=== PATIENT | female | born 1940 | race Caucasian/White ===

== ENCOUNTER 2019-05-18 21:04 | Emergency (ER) | payer MEDICARE, OTHER, SELFPAY ==
[2019-05-18] VITALS (9 sets, daily range): BP systolic 109–129; BP diastolic 52–92; PULSE 95–110; RESP 18–30; TEMP 37.2–37.5; O2SAT 94–97
--- NOTE | ~2019-05-18 | XR_ITS ---
EXAMINATION: XR chest 2V DATE: 05/18/2019 21:30 INDICATION: Shortness of breath TECHNIQUE: AP and lateral views of the chest are obtained. COMPARISON: 06/21/2017; CT, 11/15/2018 FINDINGS: There appears to be persistent partial collapse of the right middle lobe. The lungs are jennifer e of acute opacities. There is no pleural effusion or pneumothorax. The cardiomediastinal silhouette is normal. There is moderate thoracic spondylosis. IMPRESSION: 1. Persistent partial collapse of the right middle lobe. Reviewed, dictated and finalized at location A.
--- NOTE | 2019-05-18 21:10 | ECG_ITS ---
Measurements Intervals [place] Rate: 97 P: 72 MS: 127 QRS: 56 QRSD: 94 T: 67 QT: 345 QTc: 439 Interpretive Statements SINUS RHYTHM NORMAL ECG Electronically Signed On 05-19-2019 7:19:01 CDT by Musa Aguilar D.O.
--- NOTE | 2019-05-18 21:15 | ED.URI ---
HPI - URI/Sore Throat General Chief Complaint: Fever Stated Complaint: cough, fatigue, temp Time Seen by Provider: 05/18/19 21:11 Source: patient Mode of arrival: EMS Limitations: no limitations History of Present Illness HPI Narrative: The pt is a 78 y/o female who presents to the ED, via EMS, c/o dry cough onset 1.5 weeks ago. Pt states that she has a PMHx of COPD. She notes that she has not had to change her oxygen from 2.5 L at all. Pt reports fever and SOB. Patient states that she does have inhaler nebulizer machine at home which she has been taking. She denies any chest pain abdominal pain nausea vomiting diarrhea or any other symptoms MD elicited complaint: cough Pertinent past history: COPD Onset (ago): week(s) (1.5) Description of mucous: other (None) Associated symptoms: fever and shortness of breath Related Data Home Medications Medication Instructions Recorded Confirmed acetylcysteine 05/18/19 Allergies Allergy/AdvReac Type Severity Reaction Status Date / Time No Known Allergies Allergy Verified 07/24/18 15:48 Review of Systems Review of Systems: All systems reviewed & are unremarkable except as noted in HPI and below Constitutional: Constitutional: Reports fever(s) Respiratory: Respiratory: Reports cough (Dry) and Reports dyspnea PMFSH Past Medical History Medical History (Updated 05/18/19 @ 23:14 by Tyron Thomas DO) Brain aneurysm COPD (chronic obstructive pulmonary disease) CVA (cerebral vascular accident) Ear drum perforation GERD (gastroesophageal reflux disease) HLD (hyperlipidemia) HTN (hypertension) On home oxygen therapy Pneumonia Surgical History Surgical History (Updated 05/18/19 @ 21:24 by Oswald Hall) H/O: hysterectomy History of cholecystectomy History of ear surgery Ear drum perforation repair S/P clamping of cerebral aneurysm Family History Family History (Updated 08/26/17 @ 14:37 by DOCTOR UNKNOWN) Father Acute myocardial infarction, Onset Age: 75 Family history of chronic obstructive pulmonary disease, Onset Age: 75 Family history of cardiovascular disease Sibling Acute myocardial infarction Family history of chronic obstructive pulmonary disease Family history of lung cancer, Onset Age: 51 Family history of dementia Family history of cardiovascular disease Mother Cerebrovascular accident Other Family history of bipolar disorder Family history of malignant neoplasm Social History Social History Smoking status: Light tobacco smoker Second hand tobacco smoke exposure: Yes Alcohol intake: never Exam Narrative: Exam Narrative: APPEARANCE: No acute distress, nontoxic, resting in bed EYES: EOMI HEENT: Normocephalic, atraumatic, nares patent RESPIRATORY: No respiratory distress mild wheezing upper lung christie, no rhonchi or rales CARDIOVASCULAR: Regular rate and rhythm without murmurs rubs or gallops. ABDOMINAL: Soft, nontender, nondistended, no rebound or guarding MUSCULOSKELETAl: Moves all extremities. No clubbing, cyanosis or edema. NEURO: Awake and alert. Following commands, speech normal, no focal deficits SKIN:: Warm, dry. No rashes lesions or abrasions PSYCHIATRIC: Normal affect/mood, Course Course Emergency Course: Following 2 breathing treatments patient states she is feeling much better. Repeat lung exam is clear to all station bilaterally. The patient with a walking pulse ox licensing greater than 90% the entire time walking. States she is feeling much better and is ready to be discharged. States she has nebulizer and inhaler at home Discussed with patient results of workup and diagnosis. Discussed need for follow-up with primary care, proper use of medication, and reasons to return to the emergency department. Patient understands and agrees to current treatment plan Vital Signs Vital signs: Vital Signs Temperature 99.5 F 05/18/19 21:04 Pulse Rate 96 05/18/19 21:04 Respiratory Rate 27 H 03
[2019-05-18 21:25] LABS: Basophils Absolute Auto 0.1 K/mm3 (0.0-0.1); Basophils Percent Auto 0.8 % (0.2-1.2); Eosinophils Percent Auto 0.2 % (0-4.4); Hematocrit 43.8 % (37.0-47.0); Hemoglobin 14.2 g/dL (12.0-15.0); Immature Granulocyte Absolute 0.05 K/mm3 (0.00-0.031); Immature Granulocyte Percent A 0.4 % (0-0.5); Lymphocytes Absolute Auto 1.54 K/mm3 (0.9-3.2); Lymphocytes Percent Auto 11.8 % (18.3-44.2); Mean Corpuscular HGB Conc 32.4 g/dl (32-36); Mean Corpuscular Hemoglobin 28.9 pg (26-34); Mean Platelet Volume 9.9 fl (7.4-10.4); Monocytes Absolute Auto 1.4 K/mm3 (0.1-0.6); Monocytes Percent Auto 10.9 % (2.6-8.5); Neutrophils Absolute Auto 9.9 K/mm3 (1.3-6.7); Neutrophils Percent Auto 75.9 % (45.5-73.1); Platelet Count Result 220 k/mm3 (150-375); Red Blood Count 4.92 M/mm3 (4.2-5.4); Red Cell Distribution Width 13.4 % (11.5-14.5)
[2019-05-18] MEDS: ALBUTEROL SULFATE NEB 2.5 MG/0.5 ML INH 5 MG INHALATION ×2 (21:34→22:28)
[2019-05-18] MEDS: IPRATROPIUM BR 0.02% INH SOLN 0.5 MG/2.5 ML VIAL INHALATION ×2 (21:34→22:29)
[2019-05-18 21:36] LABS: Blood Urea Nitrogen 8 mg/dL (7-17); Calcium 9.5 mg/dL (8.4-10.2); Carbon Dioxide 26 mmol/L (22-30); Chloride 103 mmol/L (98-107); Estimated Glomerular Filt Rate > 60; Glucose 109 mg/dL (65-105); Potassium 3.8 mmol/L (3.4-5.0); Sodium 136 mmol/L (137-145)
[2019-05-18] MEDS: methylPREDNISolone SOD SUCC 125 MG VIAL IV PUSH (21:36)
--- NOTE | 2019-05-18 22:10 | PC.NURSE ---
pt's daughter Vero called asked about pt she is POA. Told her pt is stable and RN needs verbal permission from pt before communicating anything further. RN to call back at [phone]
[2019-05-18 22:14] LABS: Lactic Acid Reflex 1.1 mmol/L (0.7-2.1)
--- NOTE | 2019-05-18 22:18 | PC.NURSE ---
Pt's daughter wants to notify RN that pt has hx of lung cancer. pt's daughter Vero informed RN that she will be able to pick pt up if pt is d/c
== END 2019-05-18 23:20 | disposition home or self-care (01) ==
PROVIDERS: Emergency Provider Emergency Medicine
DX: J44.1 Chronic obstructive pulmonary disease with (acute) exacerbation (principal); Z86.73 Personal history of transient ischemic attack (TIA), and cerebral infarction without residual deficits; K21.9 Gastro-esophageal reflux disease without esophagitis; E78.5 Hyperlipidemia, unspecified; I10 Essential (primary) hypertension; Z99.81 Dependence on supplemental oxygen; F17.200 Nicotine dependence, unspecified, uncomplicated
CPT/HCPCS: 36415; 71046; 80048; 83605; 85025; 87040; 87804; 93005; 94640; 96374; 99284; J2930

== ENCOUNTER → 2019-10-10 14:19 | Outpatient (CLI) | payer MEDICARE, OTHER, SELFPAY ==
--- NOTE | ~2019-10-10 | CT_ITS ---
EXAMINATION:CT chest wo con DATE: 10/10/2019 14:45 INDICATION: Solitary pulmonary nodule. TECHNIQUE: Computed tomography (CT) of the chest was performed without intravenous contrast. Automate d exposure control and iterative reconstruction technique were employed. The dose-length product (DLP ) was 120.58 mGy-cm. COMPARISON: Chest CT 11/15/2018, 06/21/2017, 04/27/2018 FINDINGS: There is severe emphysema. There is a 4.8 x 1.7 cm mass with volume loss in right upper lob e measuring on sagittal images that previously measured 5.4 x 1.5 cm. There is an 8 mm nodule in righ t lower lobe, increased from 5 mm. There is a 5 mm nodule in right lower lobe without change. There i s a 5 mm nodule at the right minor fissure, stable from 04/27/2018. There is mucous plugging in the li ngula and left lower lobe. There is mild atelectasis bilaterally. Calcified bilateral lung nodules ar e consistent with old granulomatous disease. There is a 1.4 x 0.8 cm part solid nodule in left upper lobe with 5 mm solid component, stable from 11/15/2018. No pleural effusion. The heart size is normal. There are coronary artery calcifications. No pericardial effusion. A right paratracheal that measure s 15 x 12 mm, stable from 06/21/2017, likely benign. Calcifications in the spleen are consistent with old granulomatous disease. There is mild thoracic spondylosis and severe cervical spondylosis. IMPRESSION: 1. Chronic mass at right lung apex, consistent with primary bronchogenic carcinoma and changes of rad iation therapy. 2. Worsened 8 mm nodule in right lung lower lobe suspicious for primary bronchogenic carcinoma or met astatic disease. Reviewed, dictated and finalized at location B. IMPRESSION: 1. Chronic mass at right lung apex, consistent with primary bronchogenic carcin jose r and changes of radiation therapy. 2. Worsened 8 mm nodule in right lung lower lobe suspicious for primary broncho genic carcinoma or metastatic disease.
== END ==
PROVIDERS: Visit Provider Radiology Radiation Oncology
DX: R91.1 Solitary pulmonary nodule (principal)
CPT/HCPCS: 71250

== ENCOUNTER → 2019-10-31 13:32 | Outpatient (CLI) | payer MEDICARE, OTHER, SELFPAY ==
--- NOTE | ~2019-10-31 | CT_ITS ---
EXAMINATION: CT brain wo/w con DATE: 10/31/2019 14:31 INDICATION: Headache. TECHNIQUE: Computed tomography (CT) of the head was performed without and with 100 mL Omnipaque 350 i ntravenous contrast. The mA was adjusted according to patient size. Iterative reconstruction techniqu e was employed. The dose-length product was 1199.14 mGy-cm. COMPARISON: Head CT 03/30/2010 FINDINGS: There is an aneurysm clip in left sylvian fissure. There are changes of left-sided cranioto my. There are scattered areas of low attenuation in the cerebral white matter. There is chronic encep halomalacia in left frontotemporal region. There is no intracranial hemorrhage, acute infarction, or abnormal intracranial mass lesion. The ventricles are normal in size. The paranasal sinuses are clear . Vertebral body heights are normal. There are trace bilateral mastoid effusions. IMPRESSION: 1. Chronic encephalomalacia in left frontotemporal region. 2. Extensive nonspecific cerebral white matter disease, which likely represents chronic small vessel ischemic disease. Reviewed, dictated and finalized at location A.
[2019-10-31 14:13] LABS: Estimated Glomerular Filt Rate > 60
== END ==
PROVIDERS: PCP Radiology Radiation Oncology; Visit Provider Radiology Radiation Oncology
DX: R91.1 Solitary pulmonary nodule (principal); R93.0 Abnormal findings on diagnostic imaging of skull and head, not elsewhere classified
CPT/HCPCS: 70470; Q9967

== ENCOUNTER → 2020-01-22 12:52 | Outpatient (CLI) | payer MEDICARE, OTHER, SELFPAY ==
--- NOTE | ~2020-01-22 | CT_ITS ---
EXAMINATION: CT chest wo con DATE: 01/22/2020 13:21 INDICATION: malignant neoplasm of bronchus and lung TECHNIQUE: Computed tomography (CT) of the chest was performed without intravenous contrast. Addition al 3D reconstructions utilizing coronal maximum intensity projection (MIP) were performed. Automated exposure control and iterative reconstruction technique were employed. The dose-length product was 12 5.55 mGy-cm. COMPARISON: 10/10/2019 FINDINGS: Severe emphysema. No significant interval change in a curved band of consolidation with associated ar chitectural distortion and volume loss at the right apex which measures approximately 1 cm in maximal thickness on the sagittal images. There is been slight interval increase in size of a now 8 x 8 x 11 mm right lower lobe nodule which previously measured 7 x 6 x 10 mm. A second more inferior satellite nodule has also slightly increased in size, currently measuring 7 x 6 mm and previously measuring 6 x 5 mm. Unchanged 5 mm nodule along the right minor fissure, likely an intrafissural lymph node. No i nterval change in the 14 x 8 mm part solid nodule in the left upper lobe with 4-5 mm solid component. Small calcified nodules in the left upper and lower lobes, unchanged mildly enlarged precarinal lymp h node with small calcifications and a couple splenic calcifications, all consistent with old granulo matous disease. No pneumonia, pulmonary edema or pleural effusion. Heart size is normal. Atherosclero tic coronary artery calcific calcification. Aortic valve and mitral annular calcification. No pericar dial effusion. Atherosclerotic thoracic aorta is normal in caliber. No new or enlarging thoracic lymp hadenopathy. Mild upper thoracic levocurvature with mild thoracic and moderate lower cervical spondyl osis. IMPRESSION: 1. No significant interval change in a curved bandlike region of consolidation in the right upper lob e consistent with primary bronchogenic carcinoma and changes of radiation treatment. 2. Continued growth in a now a 8 x 8 x 11 mm right lower lobe nodule and adjacent 6 x 5 mm satellite nodule concerning for malignancy either primary or metastatic. Reviewed, dictated and finalized at location H. ICAL OPERATIONS MANAGER IMPRESSION: 1. No significant interval change in a curved bandlike region of consolidation in the right upper lobe consistent with primary bronchogenic carcinoma and anguiano ges of radiation treatment. 2. Continued growth in a now a 8 x 8 x 11 mm right lower lobe nodule and adjace nt 6 x 5 mm satellite nodule concerning for malignancy either primary or metast atic.
== END ==
PROVIDERS: Visit Provider Radiology Radiation Oncology
DX: Z85.118 Personal history of other malignant neoplasm of bronchus and lung (principal)
CPT/HCPCS: 71250

== ENCOUNTER → 2020-06-04 12:55 | Outpatient (CLI) | payer MEDICARE, OTHER, SELFPAY ==
--- NOTE | ~2020-06-04 | CT_ITS ---
EXAMINATION: CT diagnostic chest wo con EXAM DATE: 06/04/2020 13:18 INDICATION: Personal history of other malignant neoplasm of bronchus. COPD. Radiation treatment. TECHNIQUE: Spiral CT of the chest without contrast. Axial, coronal and sagittal images were reviewe d. Coronal maximum intensity pixel images of chest reviewed. The dose-length product (DLP) for this examination was 35.81 mGy-cm. The exposure was tailored according to patient size (auto mA exposure control), and iterative reconstruction (ASIR) was used as additional dose reduction technique. Rafal rison is made to prior examination from 01/22/2020, 10/10/2019. FINDINGS: Right apical spiculation extending toward the hilum, difficult to measure given shape but approximately 1.6 x 3.0 cm in greatest axial dimensions appears unchanged compared to prior 2 studies , consistent with treated malignancy. The right lower lobe superior segmental nodule now measures 10 mm in greatest axial dimension, was ab out 6 mm on 10/10/2019, has demonstrated mild interval increase in size. Smaller satellite nodule appe ars unchanged. Another right middle lobe 4 mm nodule is unchanged. There is moderate emphysema. Lungs appear severely chronically hyperinflated. There are no pleural or pericardial effusions. Tracheobronchial tree is patent. Mildly enlarged precarinal lymph node is unchanged. There is no pneumothorax. Heart normal in size. There is moderate coronary arterial calcification, arterial sclerosis. Upper abdomen is unremarkable. No osteoblastic or osteolytic le sions identified. IMPRESSION: 1. Stable right upper lobe treated malignancy. 2. Mild interval increase in size of right lower lobe nodule, could be slow-growing malignancy. 3. Moderate emphysema. Reviewed, dictated and finalized at location A. IMPRESSION: 1. Stable right upper lobe treated malignancy. 2. Mild interval increase in size of right lower lobe nodule, could be slow-gr owing malignancy. 3. Moderate emphysema.
== END ==
PROVIDERS: Visit Provider Radiology Radiation Oncology
DX: R91.1 Solitary pulmonary nodule (principal); J43.9 Emphysema, unspecified
CPT/HCPCS: 71250

== ENCOUNTER → 2020-10-01 12:37 | Outpatient (CLI) | payer MEDICARE, OTHER, SELFPAY ==
--- NOTE | ~2020-10-01 | CT_ITS ---
EXAMINATION:CT diagnostic chest wo con DATE: 10/01/2020 12:57 INDICATION: Personal history of other malignant neoplasm of bronchus and lung. TECHNIQUE: Computed tomography (CT) of the chest was performed without intravenous contrast. Automate d exposure control and iterative reconstruction technique were employed. The dose-length product (DLP ) was 128.79 mGy-cm. COMPARISON: Chest CT 06/04/2020, 06/21/2017 FINDINGS: There is severe emphysema. Calcified bilateral lung nodules and calcified mediastinal lymph nodes are consistent with old granulomatous disease. There is a 3.7 x 1.9 cm mass in right lung apex , stable from 06/04/2020. There is an 11 mm nodule in right lower lobe that measured 12 mm on 06/04/2020 and 4 mm on 07/15/17. There is a 5 mm nodule in left lower lobe that previously measured 4 mm on and is new from 06/21/17. There is a 10 mm part solid nodule in left upper lobe without change from 06/04/20, but worsened from 7 mm on 07/15/17. No pleural effusion. The heart size is normal. There are c oronary artery calcifications. No pericardial effusion. There is sclerosis in right first rib, consis tent with radiation osteitis. There is moderate thoracic spondylosis. IMPRESSION: 1. Chronic mass of right lung apex, consistent with primary bronchogenic carcinoma and changes of rad iation therapy. 2. Right lower lobe pulmonary nodule suspicious for primary bronchogenic carcinoma or metastatic dise ase. 3. Smaller nodules with worsening from 06/21/2017 that are indeterminate for malignancy. 4. Severe emphysema. Reviewed, dictated and finalized at location A. IMPRESSION: 1. Chronic mass of right lung apex, consistent with primary bronchogenic carcin jose r and changes of radiation therapy. 2. Right lower lobe pulmonary nodule suspicious for primary bronchogenic carcin jose r or metastatic disease. 3. Smaller nodules with worsening from 06/21/2017 that are indeterminate for mal ignancy. 4. Severe emphysema.
== END ==
PROVIDERS: Visit Provider Radiology Radiation Oncology
DX: Z85.118 Personal history of other malignant neoplasm of bronchus and lung (principal); J43.9 Emphysema, unspecified; R91.8 Other nonspecific abnormal finding of lung field
CPT/HCPCS: 71250

== ENCOUNTER → 2021-04-15 10:31 | Outpatient (CLI) | payer MEDICARE, OTHER, SELFPAY ==
--- NOTE | ~2021-04-15 | CT_ITS ---
EXAMINATION: CT diagnostic chest wo con DATE: 04/15/2021 11:02 INDICATION: Pulmonary nodule TECHNIQUE: Computed tomography (CT) of the chest was performed without intravenous contrast. The dose -length product (DLP) was 47.77 mGy-cm. Automated exposure control and iterative reconstruction techn ique were employed. COMPARISON: 10/01/2020 FINDINGS: There is severe emphysema. A 3.6 x 2.1 cm mass of the right lung apex is not significantly changed. A 1.4 cm nodule of the right lower lobe measured 11 mm on the prior examination. A stable 5 mm nodule is present in the medial aspect of the left lower lobe. A stable 10 mm part solid nodule is present in the left upper lobe. The heart size is normal. There is calcified coronary artery atheros clerosis. There is mild thoracic spondylosis. IMPRESSION: 1. Unchanged mass of the right lung apex, consistent with primary bronchogenic carcinoma in treatment change. 2. Enlarging right lower lobe nodule, consistent with primary bronchogenic carcinoma versus metastati c disease. 3. Additional stable pulmonary nodules, benign versus malignant. Reviewed, dictated and finalized at location A. ICULUM ADVISORY TEACHER IMPRESSION: 1. Unchanged mass of the right lung apex, consistent with primary bronchogenic carcinoma in treatment change. 2. Enlarging right lower lobe nodule, consistent with primary bronchogenic carc inoma versus metastatic disease. 3. Additional stable pulmonary nodules, benign versus malignant.
== END ==
PROVIDERS: Visit Provider Radiology Radiation Oncology
DX: R91.1 Solitary pulmonary nodule (principal); R91.8 Other nonspecific abnormal finding of lung field
CPT/HCPCS: 71250

== ENCOUNTER → 2021-08-20 10:57 | Outpatient (CLI) | payer MEDICARE, OTHER, SELFPAY ==
--- NOTE | ~2021-08-20 | CT_ITS ---
EXAMINATION: CT diagnostic chest wo con DATE: 08/20/2021 11:23 INDICATION: Pulmonary nodule, history of lung cancer TECHNIQUE: Computed tomography (CT) of the chest was performed without intravenous contrast. The dose -length product (DLP) was 48.81 mGy-cm. Automated exposure control and iterative reconstruction techn ique were employed. COMPARISON: 04/15/2021, 01/22/2020 FINDINGS: There is severe emphysema. A 3.1 x 2.0 cm mass of the right lung apex is stable to slightly decreased in size. A 1.4 cm nodule of the right lower lobe is stable since the prior examination but increase in size since older prior examinations. There is a stable 5 mm nodule in the medial aspect of the left lower lobe. Also seen is a stable 10 mm part solid nodule of the left upper lobe. The hea rt size is normal. The lungs are free of acute opacities. No pleural effusion or pneumothorax. There is mild right lower paratracheal lymphadenopathy. There is mild thoracic spondylosis. IMPRESSION: 1. Mass of the right lung apex, stable to slightly decreased in size, consistent with primary broncho genic carcinoma and treatment change. 2. Right lower lobe nodule, stable since the most recent comparison but enlarging compared to priors, consistent with primary bronchogenic carcinoma versus metastatic disease. 3. Additional stable pulmonary nodules as described, benign versus malignant. Reviewed, dictated and finalized at location A. IMPRESSION: 1. Mass of the right lung apex, stable to slightly decreased in size, consisten t with primary bronchogenic carcinoma and treatment change. 2. Right lower lobe nodule, stable since the most recent comparison but enlargi ng compared to priors, consistent with primary bronchogenic carcinoma versus me tastatic disease. 3. Additional stable pulmonary nodules as described, benign versus malignant.
== END ==
PROVIDERS: PCP Family Medicine; Visit Provider Radiology Radiation Oncology
DX: R91.1 Solitary pulmonary nodule (principal); R91.8 Other nonspecific abnormal finding of lung field
CPT/HCPCS: 71250

== ENCOUNTER → 2021-11-24 11:44 | Outpatient (CLI) | payer MEDICARE, OTHER, SELFPAY ==
--- NOTE | ~2021-11-24 | CT_ITS ---
EXAMINATION: CT diagnostic chest wo con DATE: 11/24/2021 12:00 INDICATION: Pulmonary nodule TECHNIQUE: Computed tomography (CT) of the chest was performed without intravenous contrast. The dose -length product (DLP) was 41.71 mGy-cm. Automated exposure control and iterative reconstruction techn ique were employed. COMPARISON: 08/20/2021 FINDINGS: There is a 3.0 x 2.0 cm mass of the right lung apex which is stable in size since the prior examination. A stable 1.4 cm nodule is present in the right lower lobe. There is a stable 5 mm nodul e in the medial aspect of the left lower lobe. An 11 mm part solid nodule of the left upper lobe is s table. There is severe emphysema. No pleural effusion or pneumothorax. The heart size is normal. Ther e is partial atelectasis of the right middle lobe. Right lower paratracheal lymphadenopathy is stable . There is mild thoracic spondylosis. IMPRESSION: 1. Stable mass of the right lung apex, consistent with primary bronchogenic carcinoma and treatment c heavenly. 2. Additional stable nodules, benign versus metastatic disease. Reviewed, dictated and finalized at location A. IMPRESSION: 1. Stable mass of the right lung apex, consistent with primary bronchogenic car cinoma and treatment change. 2. Additional stable nodules, benign versus metastatic disease.
== END ==
PROVIDERS: PCP Radiology Radiation Oncology; Visit Provider Radiology Radiation Oncology
DX: R91.1 Solitary pulmonary nodule (principal); R91.8 Other nonspecific abnormal finding of lung field
CPT/HCPCS: 71250

== ENCOUNTER 2022-09-09 06:08 | Inpatient (IN) | payer MEDICARE, OTHER, SELFPAY ==
[2022-09-09] VITALS (33 sets, daily range): BP systolic 122–170; BP diastolic 62–92; PULSE 83–120; RESP 13–28; TEMP 36.3–36.9; O2SAT 90–100; BMI 21.5
--- NOTE | ~2022-09-09 | CT_ITS ---
EXAMINATION: CTA chest PE protocol DATE: 09/09/2022 09:20 INDICATION: Shortness of breath TECHNIQUE: Computed tomography angiography (CTA) of the chest was performed with 100 mL Omnipaque-350 intravenous contrast timed to evaluate the pulmonary arteries. Coronal maximum intensity projection 3D-reconstructions were created by the technologist. The dose-length product (DLP) was 226.98 mGy-cm. Automated exposure control and iterative reconstruction technique were employed. COMPARISON: 11/24/2021 FINDINGS: The pulmonary arteries are well-opacified. No pulmonary embolism is identified. There is a 2.7 cm nodule of the right lung apex with slight decrease in size since the comparison examination. A 1.5 cm nodule of the right lower lobe demonstrates slight increase in size. There is a stable 5 mm n odule in the medial aspect of the left lower lobe. There is a stable 11 mm part solid nodule of the l eft upper lobe. There is severe emphysema. No pleural effusion or pneumothorax. There are multiple ar eas of mucous plugging in the lower lobes. Right lower paratracheal lymphadenopathy appears stable. T he heart size is normal. There is partial atelectasis of the right middle lobe. There is mild thoraci c spondylosis. IMPRESSION: 1. No pulmonary embolus identified. 2. Slight decrease in size of a nodule of the right lung apex, slight increase in size of the right l ower lobe nodule, and stable left lung nodules. Findings likely reflect primary and metastatic bronch ogenic carcinoma with mixed treatment response. Reviewed, dictated and finalized at location B. IMPRESSION: 1. No pulmonary embolus identified. 2. Slight decrease in size of a nodule of the right lung apex, slight increase in size of the right lower lobe nodule, and stable left lung nodules. Findings likely reflect primary and metastatic bronchogenic carcinoma with mixed treatme nt response.
--- NOTE | ~2022-09-09 | XR_ITS ---
Portable chest x-ray Comparison: 05/18/2019 Clinical History: Shortness of breath Findings: Right midlung pulmonary nodular opacities probably stable from prior exam. There is right apical density, possibly more conspicuous than on prior exam. Probable COPD. Cardiomediastinal silho uette is stable. Bones and soft tissues are unremarkable. Impression: Right apical density may be more prominent than prior exam. Consider CT to further evaluate. Right midlung nodular opacity is probably similar to prior exam. Suspected COPD. Reviewed, dictated and finalized at location . Impression: Right apical density may be more prominent than prior exam. Consider CT to furt her evaluate. Right midlung nodular opacity is probably similar to prior exam. Suspected COPD.
--- NOTE | ~2022-09-09 | XR_ITS ---
Portable chest x-ray Comparison: 09/09/2022 Clinical History: Shortness of breath Findings: COPD pattern of the lungs present. Possible 7 mm cavitary nodule at the right midlung. Sta ble additional vague nodular opacity at the right mid to lower lung field. Cardiomediastinal silhoue tte is stable. Bones and soft tissues are unremarkable. Impression: Suspected right lung nodules, as detailed above. Please refer to CT scan performed yesterday for furt her details. Reviewed, dictated and finalized at location M. Impression: Suspected right lung nodules, as detailed above. Please refer to CT scan perfor med yesterday for further details.
--- NOTE | 2022-09-09 06:25 | ECG_ITS ---
Measurements Intervals [place] Rate: 107 P: 71 UT: 106 QRS: 66 QRSD: 90 T: 45 QT: 333 QTc: 445 Interpretive Statements SINUS TACHYCARDIA WITH SHORT UT INTERVAL ANTEROSEPTAL INFARCT, AGE INDETERMINATE BORDERLINE ST-T WAVE ABNORMALITY- INFERIOR LEADS BASELINE ARTIFACT- I, II, III, AVR, AVL, AVF, V1-V6 ABNORMAL ECG COMPARED TO ECG 05/18/2019 21:17:[address] NOW PRESENT [address] (T WAVE) DEVIATION NOW PRESENT Electronically Signed On 09-09-2022 7:07:00 CDT by Musa Aguilar D.O.
--- NOTE | 2022-09-09 06:42 | PC.NURSE ---
Pt changed from 6L to 4L at this time. Pt stating 100% on 4L. Pt was given a breathing treatment in route to hospital.
[2022-09-09 06:56] LABS: Alanine Aminotransferase 38 U/L (6-35); Albumin Level 4.3 g/dL (3.5-5.1); Alkaline Phosphatase 107 U/L (38-126); Anion Gap 4 mmol/L (8-16); Aspartate Amino Transferase 48 U/L (14-36); Bilirubin,Total 0.5 mg/dL (0.2-1.3); Blood Urea Nitrogen 19 mg/dL (7-17); Calcium 9.1 mg/dL (8.4-10.2); Carbon Dioxide 29 mmol/L (22-30); Chloride 104 mmol/L (98-107); Estimated CRCL calculation 45 ml/min; Estimated Glomerular Filt Rate > 60; Glucose 117 mg/dL (65-110); Potassium 3.7 mmol/L (3.4-5.0); Sodium 137 mmol/L (137-145)
[2022-09-09] MEDS: methylPREDNISolone SOD SUCC 125 MG VIAL IV PUSH (07:19)
[2022-09-09 07:24] LABS: Basophils Absolute Auto 0.1 K/mm3 (0.0-0.1); Basophils Percent Auto 0.4 % (0.2-1.2); Eosinophils Percent Auto 0.3 % (0-4.4); Hematocrit 40.9 % (37.0-47.0); Hemoglobin 13.1 g/dL (12.0-15.0); Immature Granulocyte Absolute 0.07 K/mm3 (0.00-0.031); Immature Granulocyte Percent A 0.5 % (0-0.5); Lymphocytes Absolute Auto 2.55 K/mm3 (0.9-3.2); Lymphocytes Percent Auto 18.2 % (18.3-44.2); Mean Corpuscular Hemoglobin 27.9 pg (26-34); Mean Corpuscular Volume 87.2 fl (80-100); Mean Platelet Volume 9.5 fl (7.4-10.4); Monocytes Percent Auto 6.8 % (2.6-8.5); Neutrophils Absolute Auto 10.4 K/mm3 (1.3-6.7); Neutrophils Percent Auto 73.8 % (45.5-73.1); Platelet Count Result 307 k/mm3 (150-375); Red Blood Count 4.69 M/mm3 (4.2-5.4); Red Cell Distribution Width 13.7 % (11.5-14.5)
--- NOTE | 2022-09-09 07:24 | ED.GENADULT ---
HPI - General Adult General Chief complaint: Shortness of Breath/Dyspnea Stated complaint: sob, wheezing Time Seen by Provider: 09/09/22 06:54 History of Present Illness HPI narrative: 82-year-old female history of COPD and 2 L of oxygen by nasal cannula times presented the emergency department for worsening shortness of breath. Patient states she has had worsening shortness of breath over the course of the last few days. Upon arrival to the ED patient was requiring 6 L of oxygen by nasal cannula. Patient denied any associated chest pain but did appear to have some respiratory difficulty and patient was tachypneic at a rate of 26-30 Related Data Home Medications Medication Instructions Recorded Confirmed aspirin 81 mg capsule 162 mg PO DAILY 01/07/21 09/09/22 roflumilast 250 mcg tablet 250 mcg PO DAILY 09/09/22 09/09/22 (Daliresp) Allergies Allergy/AdvReac Type Severity Reaction Status Date / Time No Known Allergies Allergy Verified 08/28/22 14:22 Review of Systems Review of Systems: All systems reviewed & are unremarkable except as noted in HPI and below PMFSH Past Medical History Medical History Brain aneurysm Chronic obstructive pulmonary disease COPD (chronic obstructive pulmonary disease) CVA (cerebral vascular accident) Dyslipidemia Ear drum perforation Essential (primary) hypertension GERD (gastroesophageal reflux disease) GERD without esophagitis History of duodenal ulcer History of lung cancer On home oxygen therapy Peripheral arterial occlusive disease Pulmonary nodules Surgical History Surgical History H/O rhytidectomy (~1984) H/O: hysterectomy (~1970) History of cerebral aneurysm repair History of cholecystectomy (Unknown) History of ear surgery Ear drum perforation repair S/P clamping of cerebral aneurysm (~2008) Family History Family History Father Acute myocardial infarction, Onset Age: 75 Family history of chronic obstructive pulmonary disease, Onset Age: 75 Family history of cardiovascular disease Sibling Acute myocardial infarction Family history of chronic obstructive pulmonary disease Family history of lung cancer, Onset Age: 51 Family history of dementia Family history of cardiovascular disease Mother Cerebrovascular accident Other Family history of bipolar disorder Family history of malignant neoplasm Social History Social History (Updated 09/09/22 @ 14:43 by Sakina Simms NP) Social History: The patient lives home alone and has 3 children. She only has contact with 1 son. The other son and daughter are estranged . Is not known who is the durable power litigation attorney associate for healthcare. The patient is retired and currently smokes. The son is unsure of how much she still continues to smoke. She is Code status full code Smoking packs per day: 1 Smoking cigarettes per day: 20.0 Years smoked: 65 Smoking pack-years: 65.00 Smoking status: Current every day smoker Tobacco type: cigarettes Second hand tobacco smoke exposure: Yes Alcohol intake: never Substance use: never Substance use type: does not use Living arrangements: alone Exam Narrative: APPEARANCE: Significantly increased work of breathing HEAD: normocephalic, atraumatic. EYES: PERRLA/EOMI, conjunctivae clear. NOSE: Normal no drainage EARS:TMS clear with good light reflex. THROAT: Pharynx clear, no exudate. NECK: Supple. No adenopathy, no masses. RESPIRATORY: Bilateral wheezing and decreased air movement bilaterally CARDIOVASCULAR: Regular rate and rhythm without murmurs rubs or gallops. ABDOMINAL: Soft, nontender, nondistended, normal bowel sounds MUSCULOSKELETAL: Moves all extremities. Strength/ROM intact, No edema, No calf tenderness. NEURO: Alert. Cranial nerves II through XII intact. Grossly
[2022-09-09] MEDS: ALBUTEROL SULFATE NEB 2.5 MG/3 ML INH 5 MG INHALATION (07:50)
--- NOTE | 2022-09-09 08:03 | PCRCNOTE ---
Pt refusing ABG
--- NOTE | 2022-09-09 09:20 | PC.NURSE ---
Pt to CT scan via stretcher at this time.
--- NOTE | 2022-09-09 11:59 | ADMGEN ---
This patient, Una Bacon, was admitted to IMU Room 205-01. Patient/family oriented to hospital policies and general routines including ID bracelet, bed and alarms, visiting hours, pain management, procedures, bathroom and other care routines, personal items, smoking policy, room service/diet, and visiting hours. Information on how to activate the Rapid Response Team has been discussed. Patient/Family are encouraged to report perceived risks to care and to ask questions if they do not understand what they are told or what they should do.
[2022-09-09] MEDS: LORazepam INJ (*CRX) 2 MG/ML VIAL 0.5 MG IV PUSH ×2 (12:26→17:16)
[2022-09-09] MEDS: methylPREDNISolone SOD SUCC 125 MG VIAL 80 MG IV PUSH ×2 (12:28→20:54)
[2022-09-09] MEDS: ALBUTEROL SULFATE NEB 2.5 MG/3 ML INH INHALATION ×3 (12:28→20:25)
--- NOTE | 2022-09-09 12:39 | PM.IMHP ---
H&P: HPI History of Present Illness Date/Time: 09/09/22 12:39 Chief Complaint: Shortness of breath Narrative: This is an 82-year-old female patient who resides home alone. The patient has a history of COPD and typically wears oxygen anywhere from 2-3 L per nasal cannula. According to the son the patient still continues to smoke cigarettes. The patient was brought to the emergency room due to shortness of breath. The patient has been using her nebulizer machine at home. She has had a history of having lung cancer and had radiation treatment in the past. According to the son she is followed by Dr. Schaefer as her oncologist. The patient was tripoding on a BiPAP when I saw her in her room. We had spent several minutes with the patient attempting to get her to breathe normally. Currently she is down to oxygen at 2 L per nasal cannula. She is off of the BiPAP. The patient was very anxious with the BiPAP and was pulling it off. Her white count is noted to be 14.0. Her AST slightly elevated 40 ALT is 38. Chest x-ray was read as the followingight apical density may be more prominent than prior exam. Consider CT to further evaluate. Right midlung nodular opacity is probably similar to prior exam. Suspected COPD. Chest CT was read as the following1. No pulmonary embolus identified. 2. Slight decrease in size of a nodule of the right lung apex, slight increase in size of the right lower lobe nodule, and stable left lung nodules. Findings likely reflect primary and metastatic bronchogenic carcinoma with mixed treatment response. The patient had been placed on a BiPAP machine, given nebulizer treatments and Solu-Medrol. The patient was quite anxious when she came up to IMU and we are able to give her some Ativan and another nebulizer treatment. She was given another dose of steroids and was taken off of the BiPAP as she was not tolerating it. The patient is currently on oxygen at 2 L per nasal cannula and satting approximately 98%. The patient was refusing ABGs. The son was unsure of her code status. For now she is a full code. I discussed the possibility of placing the patient on a ventilator with her son and the son stated he wanted to review this with his mother. At this time the patient has already had Ativan and is not able to make those decisions. The patient is being admitted to observation status on the date of service of 09/09/2022 Review of Systems Review of Systems: All systems reviewed & are unremarkable except as noted in HPI and below Constitutional: Constitutional: Reports as per HPI and Reports no additional constitutional complaints Eyes: Eyes: Reports as per HPI and Reports no additional eye complaints ENT: Reports system reviewed and no additional complaints, except as documented and Reports Normal hearing present Cardiovascular: Cardiovascular: Reports no additional cardiovascular complaints Respiratory: Respiratory: Reports no additional respiratory complaints and Reports no additional respiratory complaints Gastrointestinal: Gastrointestinal: Reports as per HPI and Reports no additional gastrointestinal complaints Musculoskeletal: Musculoskeletal: Reports no additional musculoskeletal complaints Integumentary/Breasts: Skin/Breast: Reports system reviewed and no additional complaints, except as docu and Reports as per HPI Neurologic: Reports system reviewed and no additional complaints, except as documented, Reports as per HPI and Reports Normal hearing present Psychiatric: Psychiatric: Reports no additional psychiatric complaints and Reports as per HPI Endocrine: Endocrine: Reports no additional endocrine complaints Hematologic/Lymphatic: Hematologic/Lymphatic: Reports no additional hematologic/lymphatic complaints Allergic/Immunologic: Allergic/Immunologic: Reports no additional allergic/immunologic complaints FORMERLY [facility], [facility] Past Medical History Medical History Brain a
--- NOTE | 2022-09-09 12:41 | PM.CNPUL ---
Assessment and Plan Assessment and plan (1) COPD exacerbation: Code(s): J44.1 - Chronic obstructive pulmonary disease with (acute) exacerbation Status: Acute Assessment and Plan: She is 82, still smoking a half pack a day, 09/09 admitted with exacerbation of COPD with main symptom increased shortness of breath. She has a chronic cough, does not have increased sputum or discolored sputum. She denies wheezing. She was anxious to get out the hospital this afternoon, and said that she wanted to go because she wanted to smoke. She appears too marginal to leave now, and I suggested that she stay at least overnight so get her a bit better before leaving. She lives at home with her son and adopted grandson. I agree with de-escalating the methylprednisolone, now on prednisone. She is on budesonide BID, ipratropium and albuterol 4 times a day, Daliresp 250 mcg a day, and Mucomyst nebulized to thin secretions. (2) History of lung cancer: Code(s): Z85.118 - Personal history of other malignant neoplasm of bronchus and lung Status: Acute Assessment and Plan: Treatment completed 08/17/2016, 6 radiation treatments, had chest CT 09/09 with There is a 2.7 cm nodule of the right lung apex with slight decrease in size since the comparison examination. A 1.5 cm nodule of the right lower lobe demonstrates slight increase in size. There is a stable 5 mm nodule in the medial aspect of the left lower lobe. There is a stable 11 mm part solid nodule of the left upper lobe. There is severe emphysema. No pleural effusion or pneumothorax. There are multiple areas of mucous plugging in the lower lobes. Right lower paratracheal lymphadenopathy appears stable. The heart size is normal. There is partial atelectasis of the right middle lobe. There is mild thoracic spondylosis. Will add Cornet valve to increase mobility of secretions causing atelectasis (3) Pulmonary nodules: Code(s): R91.8 - Other nonspecific abnormal finding of lung field Status: Acute Assessment and Plan: RUL 2.7 cm - slightly smaller - this is the nodule that was treated as cancer with radiation x 6 Rx RLL 1.5 cm - slightly larger compared to 11/24/2021 LLL 5 mm nodule-stable DARIANA 11 mm - stable (4) Hypoxemia: Code(s): R09.02 - Hypoxemia Status: Acute Assessment and Plan: Has been on O2 since about 2019 from reviewing our office notes; she was prescribed 2 l/min, sometimes came in to the office with 3 L/min or no O2 with her; saturation is 96-99% on 2 L/min (5) Tobacco abuse: Code(s): Z72.0 - Tobacco use Status: Acute Assessment and Plan: 65 pack year history, smoked up until admission; now at 1/2 pack a day; not interested in quitting, unfortunately. Plan add Cornet valve to help with secretions, atelectasis may be more stable for discharge tomorrow; she is verbally boycotting RN because we did not discharge her Discussed with Dr Avalos, she agrees that staying is the best option today History of Present Illness History of Present Illness Consult date: 09/11/22 Requesting physician: Sakina Simms NP Chief complaint: COPD exacerbation Narrative: pt was seen September 11 at 16:45 , chaplain Loving at bedside NEW: Una Bacon is an 82-year-old woman last seen in our office August 28, for COPD, oxygen use, tobacco use; she was treated for RUL lung cancer with [address] Ethan Schaefer, empiric treatment, no biopsy, completed 08/17/2016. She also has a 1 cm RLL nodule that is stable. She called our office on September 07 with increasing shortness of breath, medication sent for is 5th
[2022-09-09] MEDS: IPRATROPIUM BR 0.02% INH SOLN 0.5 MG/2.5 ML VIAL INHALATION ×2 (14:42→20:25)
[2022-09-09] MEDS: ACETYLCYSTEINE 20% INHAL SOLN 800 MG/4 ML VIAL 200 MG INHALATION (20:24)
[2022-09-09] MEDS: FAMOTIDINE 20 MG/2 ML VIAL IV PUSH (20:54)
[2022-09-10] VITALS (27 sets, daily range): BP systolic 134–168; BP diastolic 57–70; PULSE 77–112; RESP 16–28; TEMP 36–36.9; O2SAT 90–100
[2022-09-10] MEDS: ALBUTEROL SULFATE NEB 2.5 MG/3 ML INH INHALATION ×5 (01:52→20:11)
[2022-09-10] MEDS: IPRATROPIUM BR 0.02% INH SOLN 0.5 MG/2.5 ML VIAL INHALATION ×4 (01:52→20:12)
[2022-09-10 04:48] LABS: Basophils Percent Auto 0.1 % (0.2-1.2); Hematocrit 37.6 % (37.0-47.0); Hemoglobin 11.8 g/dL (12.0-15.0); Immature Granulocyte Absolute 0.04 K/mm3 (0.00-0.031); Immature Granulocyte Percent A 0.6 % (0-0.5); Lymphocytes Absolute Auto 0.84 K/mm3 (0.9-3.2); Lymphocytes Percent Auto 12.3 % (18.3-44.2); Mean Corpuscular HGB Conc 31.4 g/dl (32-36); Mean Corpuscular Hemoglobin 28.2 pg (26-34); Mean Corpuscular Volume 89.7 fl (80-100); Mean Platelet Volume 9.7 fl (7.4-10.4); Monocytes Absolute Auto 0.4 K/mm3 (0.1-0.6); Monocytes Percent Auto 6.3 % (2.6-8.5); Neutrophils Absolute Auto 5.5 K/mm3 (1.3-6.7); Neutrophils Percent Auto 80.7 % (45.5-73.1); Platelet Count Result 265 k/mm3 (150-375); Red Blood Count 4.19 M/mm3 (4.2-5.4); Red Cell Distribution Width 13.7 % (11.5-14.5); White Blood Count 6.8 K/mm3 (4.5-10.0)
[2022-09-10 04:59] LABS: Lactic Acid Reflex 0.6 mmol/L (0.7-2.0)
[2022-09-10 05:14] LABS: Alanine Aminotransferase 33 U/L (6-35); Albumin Level 3.9 g/dL (3.5-5.1); Alkaline Phosphatase 83 U/L (38-126); Anion Gap 5 mmol/L (8-16); Aspartate Amino Transferase 33 U/L (14-36); Bilirubin,Total 0.3 mg/dL (0.2-1.3); Blood Urea Nitrogen 30 mg/dL (7-17); Carbon Dioxide 29 mmol/L (22-30); Chloride 105 mmol/L (98-107); Estimated CRCL calculation 39 ml/min; Estimated Glomerular Filt Rate > 60; Glucose 128 mg/dL (65-110); Magnesium 2.3 mg/dL (1.6-2.3); Potassium 3.8 mmol/L (3.4-5.0); Sodium 139 mmol/L (137-145)
[2022-09-10 05:33] LABS: Thyroid Stimulating Hormone Reflex 0.372 uIU/mL (0.465-4.68)
[2022-09-10] MEDS: methylPREDNISolone SOD SUCC 125 MG VIAL 80 MG IV PUSH ×3 (05:41→21:28)
[2022-09-10] MEDS: LORazepam INJ (*CRX) 2 MG/ML VIAL 0.5 MG IV PUSH ×4 (06:27→20:55)
[2022-09-10 07:28] LABS: Free T4 Free Thyroxine Reflex 1.45 ng/dL (0.78-2.19)
[2022-09-10] MEDS: ACETYLCYSTEINE 20% INHAL SOLN 800 MG/4 ML VIAL 200 MG INHALATION ×3 (08:19→20:14)
[2022-09-10] MEDS: ENOXAPARIN 40 MG/0.4 ML SYRINGE SUB-Q (08:49)
[2022-09-10] MEDS: FAMOTIDINE 20 MG/2 ML VIAL IV PUSH ×2 (08:49→20:55)
[2022-09-10] MEDS: amLODIPine BESYLATE 5 MG TABLET 10 MG PO (08:50)
[2022-09-10] MEDS: METOPROLOL SUCCINATE EXT REL 25 MG TABCR PO (08:50)
[2022-09-10] MEDS: ROFLUMILAST 250 MCG TABLET PO (08:50)
--- NOTE | 2022-09-10 10:02 | PM.IMPN ---
Progress Note: A&P Assessment and Plan (1) Chronic obstructive pulmonary disease: Qualifiers: COPD type: unspecified COPD Qualified Code(s): J44.9 - Chronic obstructive pulmonary disease, unspecified Code(s): J44.9 - Chronic obstructive pulmonary disease, unspecified Status: Acute Assessment and Plan: The patient has continuous oxygen at home anywhere from 2-3 L. She also performs respiratory treatments at home approximately every 4 hours. According to the son the patient still continues to smoke cigarettes but it is unclear how much the patient smoking. The patient will not tolerate the BiPAP machine therefore was taken off. The patient was given Ativan placed on her home oxygen between 2 and 3 L and she is saturating around 98%. Continue with nebulizer treatments. Pulmonology has been consulted. Continue with Solu-Medrol. Continue with p.r.n. Ativan for air hunger. (2) Essential (primary) hypertension: Code(s): I10 - Essential (primary) hypertension Status: Acute Assessment and Plan: Continue with home medications. (3) GERD without esophagitis: Code(s): K21.9 - Gastro-esophageal reflux disease without esophagitis Status: Acute Assessment and Plan: Continue with IV Pepcid. (4) Tobacco abuse: Code(s): Z72.0 - Tobacco use Status: Acute Assessment and Plan: We had discussed smoking cessation for less than 5 minutes. Smoking cessation information was given to the patient per agriculture technician. (5) Pulmonary nodules: Code(s): R91.8 - Other nonspecific abnormal finding of lung field Status: Acute Assessment and Plan: According to the son the patient has already had radiation treat and the other pulmonary nodules are being monitored outpatient. (6) History of lung cancer: Code(s): Z85.118 - Personal history of other malignant neoplasm of bronchus and lung Status: Acute Assessment and Plan: According to the son the patient sees Dr. Schaefer and she has had radiation treatment in the past. Plan DVT prophylaxis with Lovenox GI prophylaxis not indicated Code status full code, DNI Subjective Date/time seen: 09/10/22 10:02 Interval history: 82 year old female with PMH COPD on 2-3L O2 at baseline, tobacco dependence, here with SOB being treated for COPD exacerbation. No overnight events noted. No chest pain. No nausea, vomiting or diarrhea. No fevers or chills. Review of Systems Review of Systems: 12 point review of systems was assessed and was negative except as noted in the HPI Exam Narrative: General: No acute distress, alert and oriented per baseline HEENT: Atraumatic, normocephalic, mucous membranes moist CV: Regular rate and rhythm, S1, S2 Lungs: wheezes throughout, diminished BS, no crackles Abdomen: Soft, nontender, nondistended Extremities: Normal to inspection Skin: No rashes noted, no lesions or wounds seen Psych: Euthymic, normal affect Objective Data Vital Signs Vital Signs: Vital Signs - 24 hr 09/09/22 10:48 09/09/22 11:08 09/09/22 11:34 Temperature Pulse Rate 85 84 86 Respiratory Rate 13 13 13 Blood Pressure 125/63 125/63 Pulse Oximetry 100 100 96 Oxygen Delivery BiPAP Oxygen Flow Rate Fraction of Inspired Oxygen 09/09/22 12:28 09/09/22 12:42 09/09/22 12:49 Temperature Pulse Rate 109 H 101 H Respiratory Rate 20 20 Blood Pressure Pulse Oximetry 98 Oxygen Delivery Nasal Cannula Oxygen Flow Rate 2 Fraction of Inspired Oxygen 09/09/22 12:00 09/09/22 14:42 09/09/22 14:40 Temperature 97.4 F L Pulse Rate 120 H 84 84 Respiratory Rate 28 H 20 20 Blood Pressure 145/92 H Pulse Oximetry 100 98 Oxygen Delivery BiPAP Oxygen Flow Rate Fraction of Inspired Oxygen 09/09/22 14:59 09/09/22 15:47 09/09/22 16:58 Temperature 97.5 F L Pulse Rate 88 87 Respiratory Rate 16 16 Blood Pressure 132/62
[2022-09-10] MEDS: BUDESONIDE RESPULE NEB 0.5 MG/2 ML AMP INHALATION (20:12)
[2022-09-11] VITALS (23 sets, daily range): BP systolic 128–174; BP diastolic 46–93; PULSE 67–98; RESP 18–22; TEMP 36.2–37.1; O2SAT 93–99
[2022-09-11] MEDS: ACETYLCYSTEINE 20% INHAL SOLN 800 MG/4 ML VIAL 200 MG INHALATION ×3 (02:30→14:09)
[2022-09-11] MEDS: IPRATROPIUM BR 0.02% INH SOLN 0.5 MG/2.5 ML VIAL INHALATION ×4 (02:30→20:26)
[2022-09-11] MEDS: ALBUTEROL SULFATE NEB 2.5 MG/3 ML INH INHALATION ×2 (02:30→08:18)
[2022-09-11 05:10] LABS: Hematocrit 38.2 % (37.0-47.0); Hemoglobin 11.8 g/dL (12.0-15.0); Immature Granulocyte Absolute 0.07 K/mm3 (0.00-0.031); Immature Granulocyte Percent A 0.6 % (0-0.5); Lymphocytes Absolute Auto 1.75 K/mm3 (0.9-3.2); Lymphocytes Percent Auto 15.2 % (18.3-44.2); Mean Corpuscular HGB Conc 30.9 g/dl (32-36); Mean Corpuscular Hemoglobin 28.2 pg (26-34); Mean Corpuscular Volume 91.2 fl (80-100); Mean Platelet Volume 9.8 fl (7.4-10.4); Monocytes Absolute Auto 0.9 K/mm3 (0.1-0.6); Monocytes Percent Auto 8.1 % (2.6-8.5); Neutrophils Absolute Auto 8.8 K/mm3 (1.3-6.7); Neutrophils Percent Auto 76.1 % (45.5-73.1); Platelet Count Result 255 k/mm3 (150-375); Red Blood Count 4.19 M/mm3 (4.2-5.4); Red Cell Distribution Width 13.8 % (11.5-14.5); White Blood Count 11.5 K/mm3 (4.5-10.0)
[2022-09-11 05:26] LABS: Alanine Aminotransferase 37 U/L (6-35); Albumin Level 3.9 g/dL (3.5-5.1); Alkaline Phosphatase 76 U/L (38-126); Anion Gap 5 mmol/L (8-16); Aspartate Amino Transferase 34 U/L (14-36); Bilirubin,Total 0.3 mg/dL (0.2-1.3); Blood Urea Nitrogen 39 mg/dL (7-17); Calcium 9.1 mg/dL (8.4-10.2); Carbon Dioxide 30 mmol/L (22-30); Chloride 107 mmol/L (98-107); Estimated CRCL calculation 39 ml/min; Estimated Glomerular Filt Rate > 60; Glucose 119 mg/dL (65-110); Sodium 142 mmol/L (137-145)
[2022-09-11] MEDS: methylPREDNISolone SOD SUCC 125 MG VIAL 80 MG IV PUSH (05:32)
[2022-09-11] MEDS: LORazepam INJ (*CRX) 2 MG/ML VIAL 0.5 MG IV PUSH ×2 (05:32→19:34)
[2022-09-11] MEDS: BUDESONIDE RESPULE NEB 0.5 MG/2 ML AMP INHALATION ×2 (08:18→20:25)
[2022-09-11] MEDS: METOPROLOL SUCCINATE EXT REL 25 MG TABCR PO (08:52)
[2022-09-11] MEDS: ENOXAPARIN 40 MG/0.4 ML SYRINGE SUB-Q (08:53)
[2022-09-11] MEDS: FAMOTIDINE 20 MG/2 ML VIAL IV PUSH ×2 (08:53→20:52)
[2022-09-11] MEDS: amLODIPine BESYLATE 5 MG TABLET 10 MG PO (09:17)
[2022-09-11] MEDS: ROFLUMILAST 250 MCG TABLET PO (09:17)
--- NOTE | 2022-09-11 09:25 | P.CDI_ITS ---
CDI Query Clarification Request Documented history of COPD. Documented oxygen requirement at home of 2-3 L NC. Documented that patient administers breathing treatments at home q 4 hours. Please clarify if known. * History of COPD, Home oxygen requirement with breathing treatments is related to Chronic Respiratory Failure. * History of COPD, Home oxygen requirement with breathing treatments is not related to Chronic Respiratory Failure. * Unknown if COPD and Home Oxygen and with breathing treatments is related to Chronic Respiratory Failure. <Purnima Arnold RN - Last Filed: 09/11/22 09:33> Clarified Diagnosis Clarified Diagnosis: History of COPD, home oxygen required with breathing treatments is related to chronic respiratory failure <Trina Avalos DO - Last Filed: 09/11/22 14:13>
--- NOTE | 2022-09-11 09:36 | PM.IMPN ---
Progress Note: A&P Assessment and Plan (1) Chronic obstructive pulmonary disease: Qualifiers: COPD type: unspecified COPD Qualified Code(s): J44.9 - Chronic obstructive pulmonary disease, unspecified Code(s): J44.9 - Chronic obstructive pulmonary disease, unspecified Status: Acute Assessment and Plan: The patient has continuous oxygen at home anywhere from 2-3 L. She also performs respiratory treatments at home approximately every 4 hours. According to the son the patient still continues to smoke cigarettes but it is unclear how much the patient smoking. The patient will not tolerate the BiPAP machine therefore was taken off. The patient was given Ativan placed on her home oxygen between 2 and 3 L and she is saturating around 98%. Continue with nebulizer treatments. Pulmonology has been consulted. 09/11: Discontinue Solu-Medrol, initiate prednisone (2) Essential (primary) hypertension: Code(s): I10 - Essential (primary) hypertension Status: Acute Assessment and Plan: Continue with home medications. (3) GERD without esophagitis: Code(s): K21.9 - Gastro-esophageal reflux disease without esophagitis Status: Acute Assessment and Plan: Continue with IV Pepcid. (4) Tobacco abuse: Code(s): Z72.0 - Tobacco use Status: Acute Assessment and Plan: We had discussed smoking cessation for less than 5 minutes. Smoking cessation information was given to the patient per java tech lead. (5) Pulmonary nodules: Code(s): R91.8 - Other nonspecific abnormal finding of lung field Status: Acute Assessment and Plan: According to the son the patient has already had radiation treat and the other pulmonary nodules are being monitored outpatient. (6) History of lung cancer: Code(s): Z85.118 - Personal history of other malignant neoplasm of bronchus and lung Status: Acute Assessment and Plan: According to the son the patient sees Dr. Schaefer and she has had radiation treatment in the past. Plan DVT prophylaxis with Lovenox GI prophylaxis not indicated Code status full code, DNI Subjective Date/time seen: 09/11/22 09:36 Interval history: 82 year old female with PMH COPD on 2-3L O2 at baseline, tobacco dependence, here with SOB being treated for COPD exacerbation. No overnight events noted. No chest pain. No nausea, vomiting or diarrhea. No fevers or chills. Much less shortness of breath, significantly decreased anxiety today. Review of Systems Review of Systems: 12 point review of systems was assessed and was negative except as noted in the HPI Exam Narrative: General: No acute distress, alert and oriented per baseline HEENT: Atraumatic, normocephalic, mucous membranes moist CV: Regular rate and rhythm, S1, S2 Lungs: wheezes throughout, diminished BS, no crackles Abdomen: Soft, nontender, nondistended Extremities: Normal to inspection Skin: No rashes noted, no lesions or wounds seen Psych: Euthymic, normal affect Objective Data Vital Signs Vital Signs: Vital Signs - 24 hr 09/10/22 10:36 09/10/22 10:56 09/10/22 12:00 Temperature 97.8 F Pulse Rate 94 92 77 Respiratory Rate 21 H 16 Blood Pressure 145/65 H Pulse Oximetry 100 100 100 Oxygen Delivery BiPAP Oxygen Flow Rate 09/10/22 12:00 09/10/22 13:38 09/10/22 13:38 Temperature Pulse Rate 84 Respiratory Rate 20 Blood Pressure Pulse Oximetry 96 90 Oxygen Delivery Nasal Cannula Nasal Cannula Oxygen Flow Rate 2 2 09/10/22 13:57 09/10/22 16:00 09/10/22 10:00 Temperature Pulse Rate 96 88 Respiratory Rate 20 Blood Pressure Pulse Oximetry 90 Oxygen Delivery Nasal Cannula Oxygen Flow Rate 2 09/10/22 12:00 09/10/22 14:00 09/10/22 16:00 Temperature Pulse Rate 87 92 106 H Respiratory Rate Blood Pressure Pulse Oximetry Oxygen Delivery Oxygen Flow Rate
[2022-09-11] MEDS: LEVALBUTEROL NEB 1.25 MG/3 ML INHALATION ×2 (14:09→20:28)
[2022-09-11] MEDS: NICOTINE (*PBKC) 14 MG PATCH 1 PATCH TRANSDERM (20:52)
[2022-09-12] VITALS (8 sets, daily range): BP systolic 115–171; BP diastolic 52–74; PULSE 81–113; RESP 18–24; TEMP 36.2–36.8; O2SAT 92–99
[2022-09-12] MEDS: IPRATROPIUM BR 0.02% INH SOLN 0.5 MG/2.5 ML VIAL INHALATION ×2 (03:08→08:02)
[2022-09-12] MEDS: LEVALBUTEROL NEB 1.25 MG/3 ML INHALATION ×2 (03:09→08:02)
[2022-09-12] MEDS: ACETYLCYSTEINE 20% INHAL SOLN 800 MG/4 ML VIAL 200 MG INHALATION ×2 (03:09→08:03)
[2022-09-12 05:07] LABS: Alanine Aminotransferase 40 U/L (6-35); Albumin Level 3.6 g/dL (3.5-5.1); Alkaline Phosphatase 75 U/L (38-126); Anion Gap 1 mmol/L (8-16); Aspartate Amino Transferase 35 U/L (14-36); Bilirubin,Total 0.4 mg/dL (0.2-1.3); Blood Urea Nitrogen 25 mg/dL (7-17); Calcium 8.7 mg/dL (8.4-10.2); Carbon Dioxide 37 mmol/L (22-30); Chloride 104 mmol/L (98-107); Estimated CRCL calculation 34 ml/min; Estimated Glomerular Filt Rate > 60; Glucose 88 mg/dL (65-110); Potassium 3.1 mmol/L (3.4-5.0); Sodium 142 mmol/L (137-145)
[2022-09-12 05:27] LABS: Basophils Percent Auto 0.2 % (0.2-1.2); Eosinophils Percent Auto 0.1 % (0-4.4); Hematocrit 37.8 % (37.0-47.0); Hemoglobin 12.2 g/dL (12.0-15.0); Immature Granulocyte Absolute 0.08 K/mm3 (0.00-0.031); Immature Granulocyte Percent A 0.7 % (0-0.5); Lymphocytes Absolute Auto 2.67 K/mm3 (0.9-3.2); Lymphocytes Percent Auto 23.2 % (18.3-44.2); Mean Corpuscular HGB Conc 32.3 g/dl (32-36); Mean Corpuscular Hemoglobin 28.7 pg (26-34); Mean Corpuscular Volume 88.9 fl (80-100); Mean Platelet Volume 9.6 fl (7.4-10.4); Monocytes Absolute Auto 1.4 K/mm3 (0.1-0.6); Monocytes Percent Auto 11.8 % (2.6-8.5); Neutrophils Absolute Auto 7.4 K/mm3 (1.3-6.7); Platelet Count Result 272 k/mm3 (150-375); Red Blood Count 4.25 M/mm3 (4.2-5.4); Red Cell Distribution Width 13.6 % (11.5-14.5); White Blood Count 11.5 K/mm3 (4.5-10.0)
[2022-09-12] MEDS: BUDESONIDE RESPULE NEB 0.5 MG/2 ML AMP INHALATION (08:02)
--- NOTE | 2022-09-12 09:11 | PM.PNPUL ---
Progress Note: A&P Assessment and Plan (1) COPD exacerbation: Code(s): J44.1 - Chronic obstructive pulmonary disease with (acute) exacerbation Status: Acute Assessment and Plan: She is 82, still smoking a half pack a day, 09/09 admitted with exacerbation of COPD with main symptom increased shortness of breath. She has a chronic cough, does not have increased sputum or discolored sputum.? She denies wheezing. Stayed overnight, and says she feels much better today. On oral prednisone. She is on budesonide BID, ipratropium and albuterol 4 times a day, Daliresp 250 mcg a day, and Mucomyst nebulized to thin secretions. (2) History of lung cancer: Code(s): Z85.118 - Personal history of other malignant neoplasm of bronchus and lung Status: Acute Assessment and Plan: Treatment completed 08/17/2016, 6 radiation treatments, had chest CT 09/09/22 with a 2.7 cm nodule of the right lung apex with slight decrease in size since the comparison examination. A 1.5 cm nodule of the right lower lobe demonstrates slight increase in size. There is a stable 5 mm nodule in the medial aspect of the left lower lobe. There is a stable 11 mm part solid nodule of the left upper lobe. There is severe emphysema. No pleural effusion or pneumothorax. There are multiple areas of?mucous plugging?in the lower lobes. Right lower paratracheal lymphadenopathy appears stable. The heart size is normal. There is?partial atelectasis of the right middle lobe. There is mild thoracic spondylosis. Cornet valve was ordered to help with the secretions causing atelectasis. (3) Pulmonary nodules: Code(s): R91.8 - Other nonspecific abnormal finding of lung field Status: Acute Assessment and Plan: RUL 2.7 cm - slightly smaller - this is the nodule that was treated as cancer with radiation x 6 Rx RLL 1.5 cm - slightly larger compared to? 11/24/2021 LLL 5 mm nodule-stable DARIANA 11 mm - stable (4) Tobacco abuse: Code(s): Z72.0 - Tobacco use Status: Acute Assessment and Plan: 65 pack year history, smoked up until admission; now at 1/2 pack a day; not interested in quitting, unfortunately. (5) Hypoxemia: Code(s): R09.02 - Hypoxemia Status: Acute Assessment and Plan: Has been on O2 since about 2019 from reviewing our office notes; she was prescribed 2 l/min, sometimes came in to the office with 3 L/min or no O2 with her; saturation is 96-99% on 2 L/min Plan ok to go home, follow up in the office in 2-4 weeks. Subjective Date/time seen: 09/12/22 09:11 Interval history: hospital follow up : Una Bacon is an 82-year-old woman seen in follow up for COPD exacerbation, sitting up in a cahir, eating lunch, wants to go home. She looks much better today. Not as dyspneic. She said that she would like to get a cab home, family does not have a car. HISTORY = = = = = consult 09/11/22 Last seen in our office August 28, for COPD, oxygen use, tobacco use; she was treated for RUL lung cancer with [address] Ethan Schaefer, empiric treatment, no biopsy, completed 08/17/2016. She also has a 1 cm RLL nodule that is stable. She called our office on September 07 with increasing shortness of breath, medication sent for is 5th room icing, Augmentin, prednisone 20 mg b.i.d. for 5 days. She worsened and presented by ambulance 09/09/22 with increased shortness of breath and required 6 L/min in the ER; CTA = no PE, slight decrease in size of a nodule of the right lung apex, slight increase in size of the right lower lobe nodule, and stable left lung nodules, findings likely reflect primary and meta
[2022-09-12] MEDS: amLODIPine BESYLATE 5 MG TABLET 10 MG PO (09:21)
[2022-09-12] MEDS: ROFLUMILAST 250 MCG TABLET PO (09:21)
[2022-09-12] MEDS: METOPROLOL SUCCINATE EXT REL 25 MG TABCR PO (09:21)
[2022-09-12] MEDS: predniSONE 40 MG, predniSONE 10 MG 50 MG PO (09:21)
[2022-09-12] MEDS: LORazepam INJ (*CRX) 2 MG/ML VIAL 0.5 MG IV PUSH (09:27)
[2022-09-12] MEDS: FAMOTIDINE 20 MG/2 ML VIAL IV PUSH (09:29)
--- NOTE | 2022-09-12 10:11 | PM.IMPN ---
Progress Note: A&P Assessment and Plan (1) Chronic obstructive pulmonary disease: Qualifiers: COPD type: unspecified COPD Qualified Code(s): J44.9 - Chronic obstructive pulmonary disease, unspecified Code(s): J44.9 - Chronic obstructive pulmonary disease, unspecified Status: Acute Assessment and Plan: The patient has continuous oxygen at home anywhere from 2-3 L. She also performs respiratory treatments at home approximately every 4 hours. According to the son the patient still continues to smoke cigarettes but it is unclear how much the patient is smoking. The patient will not tolerate the BiPAP machine therefore was taken off. The patient was given Ativan placed on her home oxygen between 2 and 3 L and she is saturating around 98%. Continue with nebulizer treatments. Pulmonology has been consulted. 09/11: Discontinue Solu-Medrol, initiate prednisone 09/12: Cont po prednisone, appreciate pulm consult and management (2) Essential (primary) hypertension: Code(s): I10 - Essential (primary) hypertension Status: Acute Assessment and Plan: Continue home norvasc 10 mg daily Blood pressures reviewed 09/12 On the high side, consider adding BP med at d/c if still high (3) GERD without esophagitis: Code(s): K21.9 - Gastro-esophageal reflux disease without esophagitis Status: Acute Assessment and Plan: Continue with IV Pepcid (4) Tobacco abuse: Code(s): Z72.0 - Tobacco use Status: Acute Assessment and Plan: We had discussed smoking cessation for less than 5 minutes. Smoking cessation information was given to the patient per staff respiratory therapist Nicotine patch given (5) Pulmonary nodules: Code(s): R91.8 - Other nonspecific abnormal finding of lung field Status: Acute Assessment and Plan: According to the son the patient has already had radiation treat and the other pulmonary nodules are being monitored outpatient. (6) History of lung cancer: Code(s): Z85.118 - Personal history of other malignant neoplasm of bronchus and lung Status: Acute Assessment and Plan: According to the son the patient sees Dr. Schaefer and she has had radiation treatment in the past. (7) Hypokalemia: Code(s): E87.6 - Hypokalemia Status: Acute Assessment and Plan: Replace and recheck Plan DVT prophylaxis with Lovenox GI prophylaxis not indicated Code status full code, DNI Subjective Date/time seen: 09/12/22 10:11 Interval history: 82 year old female with PMH COPD on 2-3L O2 at baseline, tobacco dependence, here with SOB being treated for COPD exacerbation. No overnight events noted. No chest pain. No nausea, vomiting or diarrhea. No fevers or chills. Much less shortness of breath, significantly decreased anxiety today. Review of Systems Review of Systems: 12 point review of systems was assessed and was negative except as noted in the HPI Exam Narrative: General: No acute distress, alert and oriented per baseline HEENT: Atraumatic, normocephalic, mucous membranes moist CV: Regular rate and rhythm, S1, S2 Lungs: wheezes throughout, diminished BS, no crackles Abdomen: Soft, nontender, nondistended Extremities: Normal to inspection Skin: No rashes noted, no lesions or wounds seen Psych: Euthymic, normal affect Objective Data Vital Signs Vital Signs: Vital Signs - 24 hr 09/11/22 14:09 09/11/22 14:25 09/11/22 16:40 Temperature 97.2 F L Pulse Rate 90 92 92 Respiratory Rate 20 20 20 Blood Pressure 158/51 H Pulse Oximetry 95 Oxygen Delivery Oxygen Flow Rate 09/11/22 19:43 09/11/22 20:28 09/11/22 20:00 Temperature 98.8 F Pulse Rate 90 96 Respiratory Rate 20 22 H Blood Pressure 174/93 H Pulse Oximetry 96 96 Oxygen Delivery Nasal Cannula Oxygen Flow Rate 2 09/11/22 20:31 09/11/22 20:45 09/12/22 03:10 Temperature P
--- NOTE | 2022-09-12 11:11 | PC.NURSE ---
This patient, Una Bacon, was transferred to [facility] on 09/12/22 at 1111. Personal belongings sent with patient. Report given to DEVON Price. Appropriate documentation sent with patient.
--- NOTE | 2022-09-12 12:58 | PM.DS ---
DS: Admitting Diagnosis Discharge Date 09/12/22 Admitting Diagnosis sob DS: Discharge Diagnosis Discharge Diagnosis (1) Chronic obstructive pulmonary disease: Qualifiers: COPD type: unspecified COPD Qualified Code(s): J44.9 - Chronic obstructive pulmonary disease, unspecified Code(s): J44.9 - Chronic obstructive pulmonary disease, unspecified Status: Acute Assessment and Plan: The patient has continuous oxygen at home anywhere from 2-3 L. She also performs respiratory treatments at home approximately every 4 hours. According to the son the patient still continues to smoke cigarettes but it is unclear how much the patient is smoking. The patient will not tolerate the BiPAP machine therefore was taken off. The patient was given Ativan placed on her home oxygen between 2 and 3 L and she is saturating around 98%. Continue with nebulizer treatments. Pulmonology has been consulted. 09/11: Discontinue Solu-Medrol, initiate prednisone 09/12: Cont po prednisone, appreciate pulm consult and management (2) Essential (primary) hypertension: Code(s): I10 - Essential (primary) hypertension Status: Acute Assessment and Plan: Continue home norvasc 10 mg daily Blood pressures reviewed 09/12 On the high side, consider adding BP med at d/c if still high (3) GERD without esophagitis: Code(s): K21.9 - Gastro-esophageal reflux disease without esophagitis Status: Acute Assessment and Plan: Continue with IV Pepcid (4) Tobacco abuse: Code(s): Z72.0 - Tobacco use Status: Acute Assessment and Plan: We had discussed smoking cessation for less than 5 minutes. Smoking cessation information was given to the patient per building energy retrofit technician Nicotine patch given (5) Pulmonary nodules: Code(s): R91.8 - Other nonspecific abnormal finding of lung field Status: Acute Assessment and Plan: According to the son the patient has already had radiation treat and the other pulmonary nodules are being monitored outpatient. (6) History of lung cancer: Code(s): Z85.118 - Personal history of other malignant neoplasm of bronchus and lung Status: Acute Assessment and Plan: According to the son the patient sees Dr. Schaefer and she has had radiation treatment in the past. (7) Hypokalemia: Code(s): E87.6 - Hypokalemia Status: Acute Assessment and Plan: Replace and recheck Plan DVT prophylaxis with Lovenox GI prophylaxis not indicated Code status full code, DNI DS: Summary Hospital Course Hospital Course: 82-year-old female who lives alone and has a history of COPD on chronic oxygen at 2-3 L is presenting with shortness of breath. Family states she continues to smoke at home and uses her nebulizer machine multiple times a day. She was started on IV steroids and these were de-escalated to oral prednisone. Symptoms improved significantly and she was discharged in stable condition. Please see above and med rec for details. Time Spent with Patient Time attestation: Total time spent providing and/or coordinating discharge services: Exam Narrative: General: No acute distress, alert and oriented per baseline HEENT: Atraumatic, normocephalic, mucous membranes moist CV: Regular rate and rhythm, S1, S2 Lungs: wheezes throughout, diminished BS, no crackles Abdomen: Soft, nontender, nondistended Extremities: Normal to inspection Skin: No rashes noted, no lesions or wounds seen Psych: Euthymic, normal affect DS: Data Data Completed and Pending Labs on day of discharge: Labs from last 24 hours 09/12/22 03:55 WBC 11.5 H RBC 4.25 Hgb 12.2 Hct 37.8 MCV 88.9 MCH 28.7 MCHC 32.3 RDW 13.6 Plt Count 272 MPV 9.6 Immature Gran % (Auto) 0.7 H Neut % (Auto) 64.0 Lymph % (Auto) 23.2 [place] % (Auto) 11.8 H Eos % (Auto) 0.1 Baso % (Auto) 0.2 Lymph # (Auto) 2.67 [place] # (A
[2022-09-12] MEDS: ASPIRIN 81 MG CHEWABLE TABLET 162 MG PO (12:59)
[2022-09-12] MEDS: POTASSIUM CHLORIDE 20 MEQ ER TABLET 40 MEQ PO (12:59)
== END 2022-09-12 14:35 | disposition home or self-care (01) | DRG 191 ==
LOC: ANHED 07:12 → ANHIMU 11:16 → ANH2MED 09-12 12:58 → ANHIMU 09-15 09:21
PROVIDERS: Emergency Medicine; Nurse Practitioner; Admitting Provider Chiropractor; Emergency Provider Emergency Medicine; Visit Provider Student in an Organized Health Care Education/Training Program
DX: J44.9 Chronic obstructive pulmonary disease, unspecified (principal); J96.11 Chronic respiratory failure with hypoxia; Z68.1 Body mass index [BMI] 19.9 or less, adult; I10 Essential (primary) hypertension; R91.8 Other nonspecific abnormal finding of lung field; F17.210 Nicotine dependence, cigarettes, uncomplicated; R63.6 Underweight; K21.9 Gastro-esophageal reflux disease without esophagitis; E87.6 Hypokalemia; E78.5 Hyperlipidemia, unspecified; I73.9 Peripheral vascular disease, unspecified; Z99.81 Dependence on supplemental oxygen; Z85.118 Personal history of other malignant neoplasm of bronchus and lung; Z86.73 Personal history of transient ischemic attack (TIA), and cerebral infarction without residual deficits; Z90.49 Acquired absence of other specified parts of digestive tract; Z90.710 Acquired absence of both cervix and uterus
CPT/HCPCS: 36415; 36600; 71045; 71275; 80053; 83605; 83735; 84439; 84443; 84480; 85025; 93005; 94002; 94640; 96372; 96374; 96375; 96376; 99285; A9270; G0378; J1650; J2060; J2930; J7512; Q9967